=== PATIENT | female | born 1995 | race Caucasian/White ===

== ENCOUNTER 2019-06-29 08:03 | Outpatient (CLI) | payer OTHER, SELFPAY ==
--- NOTE | 2019-07-13 16:40 | WPDPFTINT ---
PFT Interpretation PFT Interpretation: DOS: 06/29/2019 REQUESTING: Davian Lino MD REASON FOR TESTING: Chest pain on exertion PULMONARY FUNCTION TESTS This test has 2 flow attempts that are acceptable. Normal testing requires 3 adequate attempts. Spirometry: Normal FEV1 91%, normal FVC 84%, normal FEV1%, normal [id number]%. No change with bronchodilator. Lung volumes: Normal TLC 83%. RV lower than expected 58%. No air trapping. Mild increase in airway resistance 142%. Diffusion: DLCO normal 105%. Flow volume loop: Normal. IMPRESSION: Normal study. Dolly Alston MD
--- NOTE | 2019-07-15 15:13 | WPDPFTINT ---
PFT Interpretation PFT Interpretation: DOS: 06/29/2019 REQUESTING: Dr Davian Lino REASON FOR TESTING: Chest pain on exertion PULMONARY FUNCTION TESTS Results are reliable. Spirometry: FEV1 91%, FVC 84%, FEV1% is 86%, all normal. There is no statistically significant change with bronchodilator. Lung volumes: TLC 83%, RV 58%, no air trapping. Airway resistance is 142%< minimally increased. Diffusion: DLCO is 105%, normal. Flow volume loop: Flattening of the peak of the expiratory limb. IMPRESSION: Normal spirometry, lung volumes and diffusion. The flow volume loop is not diagnostic of any particular condition. No correlation for chest pain on exertion. Dolly Alston MD
--- NOTE | 2019-10-06 15:00 | WPDPFTINT ---
PFT Interpretation PFT Interpretation: DOS: 10/06/2019 REQUESTING: Dr. Alston REASON FOR TESTING: Shortness of breath METHACHOLINE CHALLENGE This test was conducted per ATS guidelines. Her previous study on 06/29/2019 showed normal spirometry, FEV1 91%. The patient was exposed to sequentially increasing doses of methacholine in the usual manner. Level 1 - saline Level 2 - 0.025 mg Level 3 - 0.25 mg Level 4 - 2.5 mg Level 5 - 10 mg Level 6 - 25 mg The test was stopped after the 5th dose, 10 mg, as she dropped her FEV1 by 38% and [id number]% by 68%. A decrease of 20% in the FEV1 is a positive result, and the testing is terminated. Her flows returned to normal after she was given a bronchodilator. IMPRESSION: This is a positive methacholine challenge with the PD20 10 mg on the 5th level. The best use for a methacholine challenge is to rule out asthma. Clinical correlation is advised. Niox: Exhaled nitric oxide is 7 ppb, normal. This level is normal and not associated with increased airway inflammation. Dolly Alston MD
--- NOTE | 2019-10-06 15:10 | WPDPFTINT ---
PFT Interpretation PFT Interpretation: DOS: [ ] REQUESTING: [ ] REASON FOR TESTING: [ ] PULMONARY FUNCTION TESTS Spirometry: [ ] Lung volumes: [ ] Diffusion: DLCO [ ] Flow volume loop: [ ] IMPRESSION: [ ] Dolly Alston MD
== END 2019-06-29 08:04 | disposition home or self-care (01) ==
DX: R06.02 Shortness of breath (principal)
CPT/HCPCS: 94060; 94726; 94729

== ENCOUNTER 2019-10-06 10:00 | Outpatient (CLI) | payer OTHER, SELFPAY ==
--- NOTE | ~2019-10-06 | XR_ITS ---
EXAMINATION: XR chest 2V DATE: 10/06/2019 10:22 INDICATION: Shortness of breath. TECHNIQUE: Frontal and lateral views of the chest were obtained. COMPARISON: None. FINDINGS: There is no pneumonia, pleural effusion, or pneumothorax. The heart size is normal. IMPRESSION: 1. No acute cardiopulmonary disease. Reviewed, dictated and finalized at location A.
--- NOTE | 2019-10-23 14:54 | WPDPFTINT ---
PFT Interpretation PFT Interpretation: DOS: 10/06/2019 REQUESTING: [ ] REASON FOR TESTING: [ ] METHACHOLINE CHALLENGE This test was conducted per ATS guidelines. A previous study on ...showed normal spirometry, ... The patient was exposed to sequentially increasing doses of methacholine in the usual manner. Level 1 - saline Level 2 - 0.025 mg Level 3 - 0.25 mg Level 4 - 2.5 mg Level 5 - 10 mg Level 6 - 25 mg The test was stopped after the .... A decrease of 20% in the FEV1 is a positive result, and the testing is terminated. Flows returned to normal after bronchodilator was administered. IMPRESSION: This is a ... methacholine challenge with the PD20 ...on the ...level. The best use for a methacholine challenge is to rule out asthma. Clinical correlation is advised. Dolly Alston MD
== END 2019-10-06 10:01 | disposition home or self-care (01) ==
DX: R06.02 Shortness of breath (principal)
CPT/HCPCS: 71046; 94070; 95012; J7674

== ENCOUNTER 2019-11-18 11:30 | Outpatient (CLI) | payer OTHER, SELFPAY ==
--- NOTE | ~2019-11-18 | NM_ITS ---
EXAMINATION: NM pulmonary perfusion DATE: 11/18/2019 13:00 INDICATION: Shortness of breath. TECHNIQUE: 5.5 mCi Tc-99m MAA was administered intravenously for perfusion images. Scintigraphic josie ges of the chest were obtained. COMPARISON: Chest 2 views 11/18/2019 FINDINGS: Perfusion images show no defects. ] IMPRESSION: 1. Pulmonary embolism absent. Reviewed, dictated and finalized at location A.
--- NOTE | ~2019-11-18 | XR_ITS ---
EXAMINATION: XR chest 2V EXAM DATE: 11/18/2019 11:45 INDICATION: Shortness of breath. Chest pain. Asthma. TECHNIQUE: Frontal and lateral projections of the chest obtained and reviewed. Comparison is made to prior examination from 10/06/2019. FINDINGS: The lungs are clear. There are no pleural effusions. The cardiomediastinal silhouette is within normal limits. There is no pneumothorax suspected. The bones and soft tissues are unremarkab le. IMPRESSION: Normal chest x-ray exam. Reviewed, dictated and finalized at location A. IMPRESSION: Normal chest x-ray exam.
== END 2019-11-18 11:31 | disposition home or self-care (01) ==
LOC: ANHIMG 11:33
PROVIDERS: Visit Provider Nurse Practitioner Family
DX: R06.02 Shortness of breath (principal)
CPT/HCPCS: 71046; 78580; A9540